=== PATIENT | female | born 1940 | race Two or more races ===

== ENCOUNTER 2024-04-04 13:48 | Inpatient (IN) | payer OTHER ==
[~2024-04-04] VITALS: Ht 162.6 cm; Wt 29.9 kg
--- NOTE | 2024-04-04 14:27 | NUR ---
PTE ALERTA Y ORIENTADA X3 EN COMPANIA DE FAMILIAR QUIEN REFEIRE PTE SE REALIZO CBC EL HERNESTO DE HOY, EL CUAL REFLEJO HEMOGLOBINA EN 5.5. SE MIDEN SV Y SE UBICA.
--- NOTE | 2024-04-04 17:21 | NUR ---
SE ORIENTA PTE SOBRE TX A SEGUIR, LA MISMA REFIERE ENTENDER. SE YAAKOV MUESTRA DE LAB Y SE CANALIZA BAJO MEDIDAS ASEPTICAS DANIELA ORDEN MEDICA
[2024-04-04 17:57] LABS: MEAN CORPUSCULAR HGB CONC 30.2 g/dl (32.0-36.0); PLATELET COUNT 315 K/uL (150-450); RED BLOOD COUNT 2.89 M/uL (4.00-6.00)
[2024-04-04 18:03] LABS: HEMATOCRIT 18.1 % (36.0-45.00); HEMOGLOBIN 5.5 g/dL (12.0-15.00); MEAN CELL VOLUME 62.7 fL (80.00-100.00)
[2024-04-04 18:11] LABS: INR 1.05; PARTIAL THROMBOPLASTIN TIME 26.6 SECONDS (22.0-34.0); PROTHROMBIN TIME 11.4 SECONDS (9.0-11.5)
[2024-04-04 18:16] LABS: ALBUMIN 2.3 gm/dL (3.4-5.0); BILIRUBIN TOTAL 0.22 mg/dL (0.3-1.2); CALCIUM 9.1 mg/dL (8.5-10.1); CREATININE SERUM 0.82 mg/dL (0.55-1.02); GFR 66.58; GLOBULINA 4.2 G/DL (2.4-3.5); POTASSIUM 4.05 mEq/L (3.5-5.1); TOTAL PROTEIN 6.5 gm/dL (6.4-8.2)
[2024-04-04 18:29] LABS: PH,URINE 6.5 (5.0-8.0); URINE APPEARANCE Clear; URINE BILIRRUBIN Negative (NEGATIVE); URINE BLOOD Negative; URINE COLOR Yellow; URINE GLUCOSE Negative (NEGATIVE); URINE KETONE Negative (NEGATIVE); URINE LEUKOCYTE Negative; URINE NITRATE Negative; URINE PROTEIN Negative (NEGATIVE); URINE UROBILINOGEN 0.2 E.U./dl
[2024-04-04 18:32] LABS: URINE RBC 3.2 uL (0.0-20.8); URINE WBC 3.8 uL (0.0-23.2)
[2024-04-04 18:35] LABS: URINE BACTERIA 3.7 uL (0.0-1933); URINE CAST 0.91 uL (0.0-1.40); URINE EPITHELIAL CELLS 0.7 uL (0.0-38.8)
[2024-04-04] MEDS ORDERED: FUROsemide 20 MG/2 ML VIAL IV SCH (18:45)
[2024-04-04] MEDS ORDERED: 0.9 % SODIUM CHLORIDE 1,000 ML IV SCH (20:15)
[2024-04-04] MEDS ORDERED: PANTOPRAZOLE SODIUM 40 MG/VIAL VIAL IV SCH (20:16)
--- NOTE | 2024-04-04 20:21 | NUR ---
SE ORIENTA A PACIENTE Y FAMILIAR SOBRE ORDEN DE TRANSFUSION DE 3 UNIDADES DE PRBC FRACCIONADAS. FAMILIAR FIRMA CONSENTIMIENTO DE TRANSFUSION. SE COMPLETA REQUISICION PARA 3 UNIDADES DE PRBC FRACCIONADAS Y SE LLEVA A LABORATORIO.
[2024-04-04] MEDS ORDERED: ACETAMINOPHEN 500 MG GEL..CAP PO PRN (20:30)
[2024-04-04 21:03] VITALS: O2SAT 100
[2024-04-04 22:00] VITALS: BP 112/62; O2SAT 99
[2024-04-05] VITALS (8 sets, daily range): BP systolic 105–140; BP diastolic 51–75; O2SAT 97–100
[2024-04-05] MEDS ORDERED: IRON FUM,PS/FOLIC/BCOMP,C NO.9 1 CAP CAPSULE PO SCH (09:00)
[2024-04-05] MEDS ORDERED: SOD FERRIC GLUC COMPLX/SUCROSE 62.5 MG/5 ML AMPUL IV SCH (18:39)
[2024-04-05] MEDS ORDERED: Cyanocobalamin/Mecobalamin 1 TAB.SL SL SCH (18:39)
[2024-04-05] MEDS ORDERED: MULTIVIT INFUSN,ADULT 4,VIT K 10 ML VIAL IV SCH (18:40)
[2024-04-05] MEDS ORDERED: THIAMINE HCL 100 MG/ML 2 ML VIAL IV SCH (18:41)
[2024-04-06] VITALS (9 sets, daily range): BP systolic 99–138; BP diastolic 62–79; O2SAT 90–100
[2024-04-06 00:25] LABS: ob NEGATIVE (NEGATIVE)
[2024-04-06] MEDS ORDERED: LORazepam 2 MG/ML VIAL IV PUSH PRN (19:45)
[2024-04-07 00:57] VITALS: BP 123/75; O2SAT 93
[2024-04-07 08:52] VITALS: O2SAT 90
[2024-04-07 09:12] VITALS: BP 134/68; O2SAT 100
[2024-04-07 11:12] LABS: HEMATOCRIT 38.8 % (36.0-45.00); HEMOGLOBIN 12.9 g/dL (12.0-15.00); MEAN CELL VOLUME 75.4 fL (80.00-100.00); MEAN CORPUSCULAR HEMOGLOBIN 25.1 pg (27.00-32.0); MEAN CORPUSCULAR HGB CONC 33.3 g/dl (32.0-36.0); PLATELET COUNT 253 K/uL (150-450); RED BLOOD COUNT 5.15 M/uL (4.00-6.00)
[2024-04-07 11:13] LABS: ALBUMIN 2.1 gm/dL (3.4-5.0); BILIRUBIN TOTAL 0.48 mg/dL (0.3-1.2); CALCIUM 8.3 mg/dL (8.5-10.1); CREATININE SERUM 0.54 mg/dL (0.55-1.02); GFR 107.82; GLOBULINA 3.5 G/DL (2.4-3.5); MAGNESIUM 1.5 mg/dL (1.8-2.4); POTASSIUM 4.2 mEq/L (3.5-5.1); RED CELL DISTRIBUTION WIDTH 24.1 % (11.5-14.5); TOTAL PROTEIN 5.6 gm/dL (6.4-8.2)
[2024-04-07 11:27] LABS: FERRITIN 222.5 NG/ML (8-252)
[2024-04-07] MEDS ORDERED: MAGNESIUM SULFATE/D5W 100 ML IV STA (11:42)
[2024-04-07 12:12] VITALS: O2SAT 98
[2024-04-07 12:36] LABS: FOLIC ACID 15.03 ng/ml (4.78-20)
[2024-04-07 16:29] VITALS: O2SAT 97
[2024-04-09 09:05] LABS: COMPLEMENT C3 116 mg/dL (82-167); COMPLEMENT C4 28 mg/dL (12-38)
== END 2024-04-07 17:43 | disposition home or self-care (01) | DRG 812 ==
LOC: ER 13:50 → MEDI 20:40
PROVIDERS: General Practice; Internal Medicine Hematology & Oncology; Nurse Practitioner Family; ADMIT Internal Medicine; ATTEND Internal Medicine
PROC: 4A12X4Z Monitoring of Cardiac Electrical Activity, External Approach (ICD-10-PCS; principal; 2024-04-05)
PROC: 30233N1 Transfusion of Nonautologous Red Blood Cells into Peripheral Vein, Percutaneous Approach (ICD-10-PCS; 2024-04-05)
DX: D64.9 Anemia, unspecified (principal); M32.9 Systemic lupus erythematosus, unspecified; D50.8 Other iron deficiency anemias; M34.9 Systemic sclerosis, unspecified